=== PATIENT | male | born 1990 | race Two or more races ===

== ENCOUNTER 2016-12-12 10:37 | Emergency (ER) | payer OTHER ==
[~2016-12-12] VITALS: Ht 180.3 cm; Wt 73.5 kg
[2016-12-12 18:20] VITALS: BP 120/66
== END 2016-12-12 18:41 | disposition home or self-care (01) ==
LOC: ER 10:40
DX: K59.00 Constipation, unspecified (principal); Z98.890 Other specified postprocedural states
CPT/HCPCS: 74176

== ENCOUNTER → 2023-03-02 | Emergency (ER) | payer OTHER | END | disposition left against medical advice (07) | LOC: ER 18:33 | DX: R55 Syncope and collapse (principal); Z53.21 Procedure and treatment not carried out due to patient leaving prior to being seen by health care provider ==